=== PATIENT | male | born 1985 | race Hispanic/Latino ===

== ENCOUNTER → 2018-08-14 | Outpatient (CLI) | payer SELFPAY ==
--- NOTE | 2018-08-15 18:34 | REP ---
Clinical: Cough . Comparison: None . Technique: PA and lateral. Findings: The mediastinum and cardiac silhouette are normal. The lung lópez are clear and without acute consolidation, effusion, or pneumothorax. The skeletal structures are intact and normal. Impression: 1. No acute cardiopulmonary process. Electronically Signed by Dmitri Luna MD 08/15/2018 06:25 P
== END ==
LOC: M ADAMS 13:59
PROVIDERS: ATTEND Physician Assistant
DX: R05 Cough (principal); R07.9 Chest pain, unspecified